=== PATIENT | male | born 1995 ===

== ENCOUNTER 2019-12-17 23:19 | Emergency (ER) | payer SELFPAY | END 2019-12-18 01:48 | disposition home or self-care (01) | LOC: ERS 23:19 | DX: S39.011A Strain of muscle, fascia and tendon of abdomen, initial encounter (principal); F17.210 Nicotine dependence, cigarettes, uncomplicated; X50.1XXA Overexertion from prolonged static or awkward postures, initial encounter | CPT/HCPCS: 99281 ==